=== PATIENT | male | born 1985 | race American Indian/Alaskan Native ===

== ENCOUNTER 2019-07-24 10:22 | Emergency (ER) | payer OTHER ==
[2019-07-24] MEDS ORDERED: ACETAMINOPHEN 325 MG TAB PO ONE (10:36)
[2019-07-24] MEDS ORDERED: ACETAMINOPHEN 325 MG TAB ONE (10:39)
[2019-07-24] MEDS ORDERED: IBUPROFEN 600 MG TAB PO ONE ×2 (11:48→11:49)
--- NOTE | 2019-07-24 12:07 | Emergency Department Report ---
Chief Complaint: Upper Respiratory Infection Stated Complaint: FLU SYM Time Seen by Provider: 07/24/19 11:49 - HPI History of Present Illness: 34 y/o male with a 3 day history of flu like symptom present to the ER. Patient denies ant PMH. Did not get his flu vaccine this year. - Exam Vital Signs: Vital Signs 07/24/19 10:33 Temperature 101.4 F H Pulse Rate 92 H Respiratory 20 Rate Blood Pressure 119/80 O2 Sat by Pulse 95 Oximetry Physical Exam: AxO times 3 NAD non toxic Resp CTA Heart RRR MSE screening note: Focused history and physical exam performed. Due to findings the following was ordered: 34 y/o male with a 3 day history of flu like symptom present to the ER. Patient denies ant PMH. Did not get his flu vaccine this year. ED Disposition for MSE Clinical Impression: Flu-like symptoms Disposition: MED SCREENING EXAM-LEFT Is pt being admited?: No Does the pt Need Aspirin: No Condition: Stable Instructions: Viral Syndrome (ED) Additional Instructions: Increase fluids take tylenol and or Ibuprofen. Rest. Forms: Work/School Release Form(ED)
[2019-07-24 14:55] VITALS: BP 120/74
== END 2019-07-24 14:55 | disposition left against medical advice (07) ==
LOC: ED 10:22
DX: J11.1 Influenza due to unidentified influenza virus with other respiratory manifestations (principal)
CPT/HCPCS: 99282